=== PATIENT | female | born 1940 | race Caucasian/White ===

== ENCOUNTER → 2021-05-24 09:51 | Outpatient (BNVA) | payer MEDICARE, OTHER, SELFPAY | PROVIDERS: PCP Family Medicine; Visit Provider Internal Medicine | DX: M48.062 Spinal stenosis, lumbar region with neurogenic claudication (principal); M17.0 Bilateral primary osteoarthritis of knee; Z87.81 Personal history of (healed) traumatic fracture | CPT/HCPCS: 99202 ==